=== PATIENT | female | born 1945 ===

== ENCOUNTER 2017-07-29 10:14 | Emergency (ER) | payer MEDICARE, BC ==
[2017-07-29 10:24] VITALS: TEMP 97.9; BMI 24.5
[2017-07-29] MEDS ORDERED: Morphine 4 mg/ml ISec IVP STA (10:50)
[2017-07-29] MEDS ORDERED: Sodium Chloride 0.9% 1,000 ML IV STA (10:50)
--- NOTE | 2017-07-29 10:56 | ED PDOC ---
Arrival/HPI - General Historian: Patient - History of Present Illness Time/Duration: 4-6 hours Symptom Onset: Sudden Symptom Course: Worsening Quality: Stabbing Severity Level: Severe Activities at Onset: Rest Context: Home - General Chief Complaint: Abdominal Pain Time Seen by Provider: 07/29/17 10:17 - History of Present Illness Narrative History of Present Illness (Text): 07/29/17 10:53 72F w/PMH sig for afib, mitral valve disease s/p replacement evaluated for RLQ ab pain x 1 day. Pt reports sudden onset of RLQ ab pain at 8am this morning while lying in bed. Pain is severe, non radiating, constant, stabbing. No alleviating or aggravating factors identified. Admits to nausea and emesis. Last normal BM yesterday, was passing flatus, last meal 6pm last night. Denies Fevers, chills, SOB, CP, other complaints. PMH: afib on Coumadin, hx ectopic , mitral valve disease PSH: Mitral valve replacement, CABG All: PCN, Shellfish SH: Denies tobacco, ETOH or illicit drug use PMD: [place] (Amira Del Rosario) Associated Symptoms (Text): 07/29/17 10:56 nausea, vomiting (Amira Del Rosario) Past Medical History - Provider Review Nursing Documentation Reviewed: Yes - Infectious Disease Hx of Infectious Diseases: None - Cardiac Hx Atrial Fibrillation: Yes Hx Cardiac Arrhythmia: Yes Hx Hypertension: Yes Other/Comment: open heart surgery x 2 - Gastrointestinal Hx Gall Bladder Disease: Yes - Psychiatric Hx Substance Use: No - Surgical History Hx Open Heart Surgery: Yes (x2) Hx Tonsillectomy: Yes Other/Comment: Nose surgery. Ectopic - Anesthesia Hx Anesthesia: Yes Hx Anesthesia Reactions: No Hx Malignant Hyperthermia: No Family/Social History - Physician Review Nursing Documentation Reviewed: Yes Family/Social History: No Known Family HX Smoking Status: Never Smoked Hx Alcohol Use: No Hx Substance Use: No Allergies/Home Meds Allergies/Adverse Reactions: Allergies Penicillins Allergy (Verified 07/29/17 10:18) RASH shellfish derived Allergy (Verified 07/29/17 10:32) SWELLING Home Medications: Home Meds Medication Instructions Recorded Confirmed Aspirin [Aspirin Chewable] 1 tab PO DAILY 07/29/17 07/29/17 Atorvastatin [Lipitor] 1 tab PO DAILY 07/29/17 07/29/17 Digoxin [Lanoxin] 1 tab PO DAILY 07/29/17 07/29/17 Metoprolol Tartrate [Lopressor] 1 tab PO DAILY 07/29/17 07/29/17 Warfarin [Coumadin] 1 tab PO QOTHERDAY 07/29/17 07/29/17 Warfarin [Coumadin] 1 tab PO QOTHERDAY 07/29/17 07/29/17 Review of Systems - Physician Review All systems were reviewed & negative as marked: Yes - Review of Systems Constitutional: Normal. absent: Fevers Eyes: Normal. absent: Vision Changes ENT: Normal. absent: Sore Throat Respiratory: Normal. absent: SOB Cardiovascular: Normal. absent: Chest Pain Gastrointestinal: Abdominal Pain, Nausea, Vomiting, Anorexia. absent: Normal, Constipation, Diarrhea, Hematochezia, Hematemesis Genitourinary Female: Normal. absent: Dysuria, Frequency Musculoskeletal: Normal. absent: Back Pain Skin: Normal. absent: Rash Neurological: Normal. absent: Headache Physical Exam Vital Signs Reviewed: Yes Temperature: Afebrile Blood Pressure: Hypertensive Pulse: Regular Respiratory Rate: Normal Appearance: Positive for: Uncomfortable Pain Distress: Moderate Mental Status: Positive for: Alert and Oriented X 3 - Systems Exam Head: Present: Atraumatic, Normocephalic Extroacular Muscles: Present: EOMI Conjunctiva: Present: Normal Mouth: Present: Dry Nose (External): Present: Atraumatic Neck: Present: Normal Range of Motion Respiratory/Chest: Present: Clear to Auscultation, Good Air Exchange. No: Respiratory Distress, Accessory Muscle Use Cardiovascular: Present: Regular Rate and Rhythm, Normal S1, S2. No: Murmurs Abdomen: Present: Tenderness, Peritoneal Signs, Rebound, Guarding, McBurney's Point Tender, Scars (well healed scar from suprapubic to umbilicus area). No: Distention, Normal Bowel Sounds (decreased), Rovsing's Sign Present, Hernias Back: Present: Normal Inspection Upper Extremity: Present: Normal Inspection. No: Cyanosis Lower Extremity: Present: Normal Inspection. No: Edema Neurological: Present: GCS=15, CN II-XII Intact, Speech Normal Skin: Present: Warm, Dry, Normal Color. No: Rashes Psychiatric: Present: Alert, Oriented x 3, Normal Insight, Normal Concentration Vital Signs Temp Pulse Resp BP Pulse Ox 10/13/17 15:02 77 16 122/74 95 07/29/17 10:22 97.9 F 93 H 18 153/72 H 99 Medical Decision Making ED Course and Treatment: 07/29/17 10:57 Pt seen/evaluated, will do labs, work up for abdominal pathology, give anti- emetics, pain medication and IVF. DW ED attending. 07/29/17 11:27 Soares Score= 5, possible appendicitis. Awaiting imaging. 07/29/17 15:38 Pt with cholelithiasis on GB U/S- then with gross hematuria while on Coumadin- pt recommended for admission. Pt declined, will sign out AMA. (Amira Del Rosario) 07/29/17 11:52 Pretty Fritz is a 72 year old female who present to the emergency department with RLQ abdominal pain, nausea and emesis. The patient was seen and examined with resident. Came up with treatment and disposition plan with resident. 07/29/17 16:30 s/p rlq pain ct neg for appendcitis. US shows gallstone in neck. recomended hida. pt also with gross hematuria on warfarin. suspect hemmoragic cystitis. recommend admission as gross bleeding on warfarin. pt refuses signs ama (Evan Lomax) - Lab Interpretations Lab Results: 07/29/17 11:07 07/29/17 11:30 Lab Results 07/29/17 14:50: Urine Color Red, Urine Appearance Turbid, Urine pH 6.5, Ur Specific [place] 1.020, Urine Protein >=300 H, Urine Glucose (UA) Negative, Urine Ketones Trace H, Urine Blood Large H, Urine Nitrate Positive H, Urine Bilirubin Small H, Urine Urobilinogen 1.0 H, Ur Leukocyte Esterase Trace H, Urine RBC Tntc, Urine WBC Negative 07/29/17 11:30: Sodium 143, Potassium 3.8, Chloride 103, Carbon Dioxide 29, Anion Gap 15, BUN 17, Creatinine 0.7, Est GFR ( Amer) > 60, Est GFR (Non- Af Amer) > 60, Random Glucose 137 H, Calcium 9.4, Total Bilirubin 0.7, AST 40 H , ALT 23, Alkaline Phosphatase 197 H, Lactate Dehydrogenase 551, Total Creatine Kinase 42, Troponin I < 0.01, Total Protein 8.3, Albumin 4.4, Globulin 3.9, Albumin/Globulin Ratio 1.1, Lipase 79 07/29/17 11:07: PT 18.8 H, INR 1.74 H, APTT 29.5 07/29/17 11:07: Digoxin 1.0 07/29/17 11:07: WBC 8.5, RBC 4.48, Hgb 11.6 L, Hct 37.4, MCV 83.5, MCH 25.9, MCHC 31.0, RDW 16.5 H, Plt Count 239, MPV 10.2, Gran % 76.0 H, Lymph % (Auto) 16.2 L, [place] % (Auto) 6.1 H, Eos % (Auto) 1.2 L, Baso % (Auto) 0.5, Gran # 6.47 , Lymph # 1.4, [place] # 0.5, Eos # 0.1, Baso # 0.04 - RAD Interpretation Radiology Orders: 07/29/17 10:50 CHEST PORTABLE [RAD] Stat 07/29/17 10:52 ABDOMEN & PELVIS [ABD & PELVIS W/O PO OR IV CONT] [CT] Stat 07/29/17 13:09 ABDOMEN COMPLETE [US] Stat 07/29/17 13:19 TRANSVAGINAL [US] Stat - Medication Orders Current Medication Orders: Discontinued Medications Sodium Chloride (Sodium Chloride 0.9%) 1,000 mls @ 999 mls/hr IV .Q1H1M STA Stop: 07/29/17 11:50 Last Admin: 07/29/17 10:58 Dose: 999 mls/hr eMAR Start Stop Document 07/29/17 10:58 MR (Rec: 07/29/17 10:59 [id number]) Intravenous Solution Start Date 07/29/17 Start Time 10:58 End Date 07/29/17 End time 11:58 Total Infusion Time 60 Morphine Sulfate (Morphine) 4 mg IVP STAT STA Stop: 07/29/17 10:51 Last Admin: 07/29/17 10:59 Dose: 4 mg MAR Pain Assessment Document 07/29/17 10:59 MR (Rec: 07/29/17 10:59 [id number]) Pain Reassessment Is this a pain reassessment? No Sleep Is patient sleeping during reassessment? No Presence of Pain Presence of Pain Yes Pain Scale Used Pain Scale Used Numeric Location Left, Right or Bilateral Right Upper or Lower Lower Pain Location Body Site Abdomen Description Description Constant Intensity of Pain at present 10 Pain Behavior Moaning Guarding Restlessness Facial Grimacing IVP Administration Document 07/29/17 10:59 MR (Rec: 07/29/17 10:59 MR [id number]) Charges for Administration # of IVP Administrations 1 Morphine Sulfate (Morphine) 2 mg IVP STAT STA Stop: 07/29/17 11:33 Last Admin: 07/29/17 11:39 Dose: 2 mg MAR Pain Assessment Document 07/29/17 11:39 MR (Rec: 07/29/17 11:40 MR [id number]) Pain Reassessment Is this a pain reassessment? Yes Sleep Is patient sleeping during reassessment? No Presence of Pain Presence of Pain Yes Pain Scale Used Pain Scale Used Numeric Location Left, Right or Bilateral Right Upper or Lower Lower Pain Location Body Site Abdomen Description Description Constant Intensity of Pain at present 9 Pain Behavior Moaning Restlessness Facial Grimacing IVP Administration Document 07/29/17 11:39 MR (Rec: 07/29/17 11:40 MR [id number]) Charges for Administration # of IVP Administrations 1 Ondansetron HCl (Zofran Inj) 4 mg IM STAT STA Stop: 07/29/17 10:51 Last Admin: 07/29/17 11:35 Dose: Ondansetron HCl (Zofran Inj) 4 mg IVP STAT STA Stop: 07/29/17 10:51 Last Admin: 07/29/17 11:00 Dose: 4 mg IVP Administration Document 07/29/17 11:00 MR (Rec: 07/29/17 11:00 MR [id number]) Charges for Administration # of IVP Administrations 1 Trimethoprim/Sulfamethoxazole (Bactrim Ds Tab) 1 tab PO STAT STA PRN Reason: Protocol Stop: 07/29/17 15:21 Last Admin: 07/29/17 15:36 Dose: 1 tab Disposition/Present on Arrival - Present on Arrival Any Indicators Present on Arrival: No History of DVT/PE: No History of Uncontrolled Diabetes: No Urinary Catheter: No History of Decub. Ulcer: No History Surgical Site Infection Following: None - Disposition Have Diagnosis and Disposition been Completed?: Yes Disposition Time: 15:39 - Disposition Diagnosis: Hematuria, Abdominal pain, UTI (urinary tract infection), Gallstone Disposition: AGAINST MEDICAL ADVICE Condition: UNKNOWN Discharge Instructions (ExitCare): Gallstones (ED), Urinary Tract Infection in Women (ED), Acute Hematuria (ED), Acute Abdominal Pain (ED), Against Medical Advice (ED) Print Language: MALAY Additional Instructions: please follow up with your doctor and specialists. please discuss your warfarin with your doctors. return at any point with any concern Prescriptions: Sulfamethoxazole/Trimethoprim [Bactrim DS 800 mg-160 mg] 1 tab PO BID #20 tab Referrals: Louis [place] MD [Primary Care Provider] - Follow up with primary David Dang MD [Staff Provider] - Follow up with primary Deyvi Treadwell MD [Staff Provider] - Follow up with primary Forms: [facility] (Moroccan)
[2017-07-29 11:11] LABS: BASO # 0.04 K/mm3 (0.0-2.0); BASO % 0.5 % (0.0-3.0); EOS # 0.1 (0.0-0.7); EOS % 1.2 % (1.5-5.0); GRAN # 6.47 (1.4-6.5); HEMATOCRIT 37.4 % (36.0-48.0); LYMPH # 1.4 (1.2-3.4); LYMPH % 16.2 % (22.0-35.0); MEAN CELL VOLUME 83.5 fl (80.0-105.0); MEAN CORPUSCULAR HEMOGLOBIN 25.9 pg (25.0-35.0); MEAN PLATELET VOLUME 10.2 fl (7.0-11.0); MONO # 0.5 (0.1-0.6); MONO % 6.1 % (1.0-6.0); RED CELL DISTRIBUTION WIDTH 16.5 % (11.5-14.5); WHITE BLOOD COUNT 8.5 10^3/ul (4.5-11.0)
[2017-07-29 11:22] LABS: INR 1.74 (0.93-1.08); PARTIAL THROMBOPLASTIN TIME 29.5 Seconds (23.7-30.8)
--- NOTE | 2017-07-29 11:29 | RAD ---
HISTORY: cardiac eval COMPARISON: No prior. FINDINGS: LUNGS: No active pulmonary disease. PLEURA: No significant pleural effusion identified, no pneumothorax apparent. CARDIOVASCULAR: Moderate to severe cardiomegaly OSSEOUS STRUCTURES: Sternal wires VISUALIZED UPPER ABDOMEN: Normal. OTHER FINDINGS: None. IMPRESSION: Moderate to severe cardiomegaly. No acute findings
[2017-07-29] MEDS ORDERED: Morphine 2 mg/ml ISec IVP STA (11:32)
[2017-07-29 11:52] LABS: ALB/GLOB RATIO 1.1 (1.1-1.8); ALKALINE PHOSPHATASE 197 U/L (38-126); ALT/SGPT 23 U/L (7-56); AST/SGOT 40 U/L (14-36); BILIRUBIN,TOTAL 0.7 mg/dL (0.2-1.3); BLOOD UREA NITROGEN 17 mg/dL (7-21); CALCIUM 9.4 mg/dL (8.4-10.5); CARBON DIOXIDE 29 mmol/L (21-33); CHLORIDE 103 mmol/L (98-107); GFR AFRICAN-AMERICAN > 60; GLUCOSE,RANDOM 137 mg/dL (70-110); LIPASE 79 U/L (23-300); POTASSIUM 3.8 mmol/L (3.6-5.0); SODIUM 143 mmol/L (132-148); TOTAL PROTEIN 8.3 g/dL (5.8-8.3)
[2017-07-29 12:04] LABS: TROPONIN I < 0.01 ng/mL
--- NOTE | 2017-07-29 12:46 | CARD ---
APPROVED REPORT EKG Measurement Heart [id number] <Conclusion> Atrial fibrillation. ST & T wave abnormality.
--- NOTE | 2017-07-29 13:04 | CT ---
PROCEDURE: CT Abdomen and Pelvis without Oral or IV contrast. HISTORY: RLQ pain COMPARISON: None available. TECHNIQUE: Contiguous axial images of the abdomen and pelvis. No oral or IV contrast administered. Coronal and Sagittal reformats generated and reviewed. Radiation dose: Total exam DLP = none available. MGy-cm. This CT exam was performed using one or more of the following dose reduction techniques: Automated exposure control, adjustment of the mA and/or kV according to patient size, and/or use of iterative reconstruction technique. FINDINGS: There is limited evaluation of the solid organs without the administration of IV contrast. LOWER THORAX: No visible consolidation, pleural effusion, or pneumothorax. Partially imaged cardiomegaly. Median sternotomy wires. Prosthetic cardiac valve. Small hiatal hernia/distal esophageal wall thickening. LIVER: Unremarkable unenhanced appearance. GALLBLADDER AND BILE DUCTS: Distended gallbladder. No calcified gallstones identified. PANCREAS: Unremarkable unenhanced appearance. SPLEEN: Unremarkable unenhanced appearance. ADRENALS: Unremarkable unenhanced appearance. KIDNEYS AND URETERS: No hydronephrosis or obstructing renal calculus. BLADDER: The urinary bladder appears unremarkable. REPRODUCTIVE: Uterus is present. APPENDIX: The appendix is not identified. No secondary signs of acute appendicitis. BOWEL: The stomach is nondistended. Lack of oral contrast limits evaluation for bowel pathology. The bowel loops appear within normal limits of caliber without evidence of intestinal obstruction. PERITONEUM: No significant free fluid. No definite free air. LYMPH NODES: No bulky lymphadenopathy identified. VASCULATURE: No aortic aneurysm. BONES: Mild degenerative changes. OTHER FINDINGS: None. IMPRESSION: Distended gallbladder. No calcified gallstones identified. Correlate clinically and suggest further evaluation with right upper quadrant ultrasound if indicated. The appendix is not identified. No secondary signs of acute appendicitis. Partially imaged cardiomegaly. Median sternotomy wires. Prosthetic cardiac valve. Small hiatal hernia/distal esophageal wall thickening.
--- NOTE | 2017-07-29 14:44 | US ---
HISTORY: right sided abd pain COMPARISON: CT abdomen and pelvis without contrast performed 07/29/17 TECHNIQUE: Sonographic evaluation of the abdomen. FINDINGS: LIVER: Measures approximately 14.1 cm in sagittal dimension in appears within normal limits of echotexture. No focal hepatic mass identified. The main portal vein appears patent with normal directional flow. No intrahepatic bile duct dilatation. GALLBLADDER: Cholelithiasis including 9 mm gallstone at the gallbladder neck. No gallbladder wall thickening. Negative sonographic Bonds's sign as assessed by the communications technician. COMMON BILE DUCT: Measures 4 mm. PANCREAS: Not well visualized. RIGHT KIDNEY: Measures 12.0 x 4.9 x 5.8cm. No obstructing calculus or hydronephrosis identified. LEFT KIDNEY: Measures 11.3 x 6.0 x 5.1cm. No obstructing calculus or hydronephrosis identified. SPLEEN: Measures approximately 9.2 cm. AORTA: Limited views appear unremarkable. IVC: Limited views appear unremarkable. OTHER FINDINGS: None. IMPRESSION: Cholelithiasis including 9 mm gallstone at the gallbladder neck. Negative sonographic Bonds's sign as assessed by the communications technician. No evidence of gallbladder wall thickening or pericholecystic edema. Correlate clinically.
--- NOTE | 2017-07-29 14:53 | US ---
HISTORY: right sided abd pain, h/o of cyst COMPARISON: Transvaginal pelvic ultrasound performed 05/01/15 TECHNIQUE: Transvaginal pelvic ultrasound FINDINGS: UTERUS: Measures 6.6 x 3.1 x 5.1 cm. Anteverted. ENDOMETRIUM: Measures 2 mm in diameter. CERVIX: Nabothian cysts. RIGHT OVARY: Measures 2.3 x 1.3 x 2.3 cm. Blood flow is demonstrated. 1.4 cm right ovarian cyst. LEFT OVARY: Measures 2.0 x 1.1 x 2.0 cm. Blood flow is demonstrated. FREE FLUID: No significant free fluid noted. OTHER FINDINGS: Incidentally note is made of heterogeneous dependent material within the urinary bladder, possibly debris. IMPRESSION: 1.4 cm right ovarian cyst. Incidental note is made of probable heterogeneous dependent material within the urinary bladder, possibly debris. Limited submitted views. Images were not submitted to indicate whether or not this finding demonstrated vascularity. Recommend correlation with urinalysis and dedicated urinary bladder ultrasound if indicated. Case discussed with Dr. Lomax on 07/29/17 at 2:49 p.m.
[2017-07-29 15:14] LABS: PH,URINE 6.5 (4.7-8.0); URINE BILIRUBIN SMALL (NEGATIVE); URINE BLOOD LARGE (NEGATIVE); URINE GLUCOSE (UA) NEGATIVE (NEGATIVE); URINE KETONE TRACE mg/dL (NEGATIVE); URINE LEUKOCYTE ESTERASE TRACE Leu/uL (NEGATIVE); URINE PROTEIN >=300 mg/dL (<30 mg/dL)
[2017-07-29 15:15] LABS: URINE APPEARANCE TURBID (CLEAR); URINE COLOR RED (YELLOW)
[2017-07-29 15:17] LABS: URINE RBC TNTC /hpf (0-2); URINE WBC NEGATIVE /hpf (0-6)
[2017-07-29] MEDS ORDERED: Tmp-Smz 800 mg-160 mg DS Tab PO STA (15:20)
[2017-07-29 15:37] VITALS: BP 122/74; PULSE 77; RESP 16; O2SAT 95
== END 2017-07-29 15:44 | disposition left against medical advice (07) ==
LOC: ED 10:14
DX: K80.20 Calculus of gallbladder without cholecystitis without obstruction (principal); N39.0 Urinary tract infection, site not specified; R31.9 Hematuria, unspecified; R10.31 Right lower quadrant pain; I10 Essential (primary) hypertension; I48.91 Unspecified atrial fibrillation
CPT/HCPCS: 71010; 74176; 76700; 76830; 80053; 80162; 81001; 82550; 83615; 83690; 84484; 85025; 85610; 85730; 93005; 96361; 96374; 96375; 96376; 99284; J2270; J2405; J7040

== ENCOUNTER 2017-08-09 15:35 | Emergency (ER) | payer MEDICARE, BC ==
[2017-08-09 15:35] VITALS: BMI 24.5
[2017-08-09 15:56] VITALS: BP 171/77; PULSE 80; RESP 16; TEMP 97.8; O2SAT 99
[2017-08-09] MEDS ORDERED: Silver Nitrate Topical - Stick TOP ONE (16:08)
--- NOTE | 2017-08-09 16:13 | ED PDOC ---
Arrival/HPI - General Chief Complaint: Abnormal Skin Integrity Time Seen by Provider: 08/09/17 15:50 Historian: Patient - History of Present Illness Narrative History of Present Illness (Text): 08/09/17 16:12 A 72 year old female, whose past medical history includes atrial fibrillation on coumadin and mitral valve disease, presents to the emergency department complaining of a cut to her labia while shaving this morning. Patient denies any pain or active bleeding at this time. Patient denies any pain, fever, chills , nausea, vomiting, abdominal pain, chest pain, shortness of breath or any other complaints. Time/Duration: Other (this morning) Symptom Course: Resolved Quality: Other Context: Home Past Medical History - Provider Review Nursing Documentation Reviewed: Yes - Infectious Disease Hx of Infectious Diseases: None - Cardiac Hx Atrial Fibrillation: Yes Hx Cardiac Arrhythmia: Yes Hx Hypertension: Yes Other/Comment: open heart surgery x 2 - Gastrointestinal Hx Gall Bladder Disease: Yes - Psychiatric Hx Substance Use: No - Surgical History Hx Open Heart Surgery: Yes (x2) Hx Tonsillectomy: Yes Other/Comment: Nose surgery. Ectopic - Anesthesia Hx Anesthesia: Yes Hx Anesthesia Reactions: No Hx Malignant Hyperthermia: No Family/Social History - Physician Review Nursing Documentation Reviewed: Yes Family/Social History: No Known Family HX Smoking Status: Never Smoked Hx Alcohol Use: No Hx Substance Use: No Allergies/Home Meds Allergies/Adverse Reactions: Allergies Penicillins Allergy (Verified 08/09/17 15:56) RASH shellfish derived Allergy (Verified 08/09/17 15:56) SWELLING Home Medications: Home Meds Medication Instructions Recorded Confirmed Aspirin [Aspirin Chewable] 1 tab PO DAILY 07/29/17 08/09/17 Atorvastatin [Lipitor] 1 tab PO DAILY 07/29/17 08/09/17 Digoxin [Lanoxin] 1 tab PO DAILY 07/29/17 08/09/17 Metoprolol Tartrate [Lopressor] 1 tab PO DAILY 07/29/17 08/09/17 Warfarin [Coumadin] 1 tab PO QOTHERDAY 07/29/17 08/09/17 Warfarin [Coumadin] 1 tab PO QOTHERDAY 07/29/17 08/09/17 Review of Systems - Physician Review All systems were reviewed & negative as marked: Yes - Review of Systems Constitutional: absent: Fevers, Night Sweats Respiratory: absent: SOB Cardiovascular: absent: Chest Pain Gastrointestinal: absent: Abdominal Pain, Nausea, Vomiting Skin: Other (cut to labia) Physical Exam Vital Signs Reviewed: Yes Vital Signs Temp Pulse Resp BP Pulse Ox 08/09/17 15:53 97.8 F 80 16 171/77 H 99 Temperature: Afebrile Blood Pressure: Hypertensive Pulse: Regular Respiratory Rate: Normal Appearance: Positive for: Well-Appearing, Non-Toxic, Comfortable Pain Distress: None Mental Status: Positive for: Alert and Oriented X 3 - Systems Exam Head: Present: Atraumatic, Normocephalic Pupils: Present: PERRL Extroacular Muscles: Present: EOMI Conjunctiva: Present: Normal Genitourinary/Pelvic Exam: Present: Other (small abrasion noted to left labia, no active bleeding). No: Vaginal Discharge, Vaginal Bleeding Neurological: Present: GCS=15, CN II-XII Intact, Speech Normal Skin: Present: Warm, Dry, Normal Color. No: Rashes Psychiatric: Present: Alert, Oriented x 3, Normal Insight, Normal Concentration Medical Decision Making ED Course and Treatment: 08/09/17 16:12 Impression: A 72 year old female with cut to left labia. no active bleeding. inr checked yesterday 2.2. pt declines recheck. labs Plan: -- Silver nitrate topical stick -- Reassess and disposition Progress Notes: Patient reports her coumadin level was 2.2 yesterday and does not want to have it rechecked today. She states she has a scheduled outpatient cystoscopy tomorrow due to reoccurring hematuria. Patient presented to be evaluated for cut no other complaints. She refuses any blood work or admission at this time. 08/12/17 08:04 - Medication Orders Current Medication Orders: Discontinued Medications Silver Nitrate (Silver Nitrate Topical Stick) 1 swa TOP ONCE ONE Stop: 08/09/17 16:09 Last Admin: 08/09/17 16:29 Dose: 1 swa Comments: USED BY DR SAHU - Meghan Statement The provider has reviewed the documentation as recorded by the Meghan Kilgore Provider Scribe Attestation: All medical record entries made by the Scribe were at my direction and personally dictated by me. I have reviewed the chart and agree that the record accurately reflects my personal performance of the history, physical exam, medical decision making, and the department course for this patient. I have also personally directed, reviewed, and agree with the discharge instructions and disposition. Disposition/Present on Arrival - Present on Arrival Any Indicators Present on Arrival: No History of DVT/PE: No History of Uncontrolled Diabetes: No Urinary Catheter: No History of Decub. Ulcer: No History Surgical Site Infection Following: None - Disposition Have Diagnosis and Disposition been Completed?: Yes Diagnosis: Labial abrasion Disposition: HOME/ ROUTINE Disposition Time: 03:00 Condition: STABLE Discharge Instructions (ExitCare): Laceration (ED) Additional Instructions: please follow up with your doctor and appointment as previously scheduled. return to emergency room with worsening symptoms or concerns Referrals: Laura Altamirano MD [Primary Care Provider] - Follow up with primary Forms: [facility] (Serbian)
== END 2017-08-09 16:46 | disposition home or self-care (01) ==
LOC: ED 15:35
DX: S30.814A Abrasion of vagina and vulva, initial encounter (principal); W45.8XXA Other foreign body or object entering through skin, initial encounter; Y92.009 Unspecified place in unspecified non-institutional (private) residence as the place of occurrence of the external cause; I10 Essential (primary) hypertension; I48.91 Unspecified atrial fibrillation; Z79.01 Long term (current) use of anticoagulants; Z88.0 Allergy status to penicillin; Z79.82 Long term (current) use of aspirin